=== PATIENT | female | born 1985 | race Caucasian/White ===

== ENCOUNTER 2023-05-29 08:56 | Outpatient (CLI) | payer OTHER ==
--- NOTE | 2023-05-29 14:00 | SLEEP CARE CONSULTATION ---
Information from patient questionnaire entered by Melecio Hoffman. I have reviewed and concur with the information entered by Melecio Hoffman. This document represents the service I personally performed and the decisions made by me, Tim Stockton MD, [facility]. History of Present Illness Service Date and Time: 05/29/2023 0856 Reason for Visit: New patient Chief Complaint: reports: Unrefreshed sleep, Snoring, Excessive daytime sleepiness, Observed pauses in breathing, Fatigue, Frequent awakenings at night Date of Onset: MORE THAN FIVE YRS Usual bedtime: 10PM Time it takes to fall asleep: 30-60MIN Snores at night: Yes Observed to quit breathing while asleep: No Sleeps alone due to snoring: No Number of times waking at night: 5-10 Reasons for waking at night: reports: Other (UNKNOWN) Toss, Turn, or Twitch while sleeping: Yes Recalls having dreams: Yes Usually gets out of bed at: 6-7AM Feels refreshed in the morning: No Morning headache: Yes Sleepy or fatigued during the day: Yes Ever fallen asleep while driving: No Takes day naps: No Prior sleep studies: No Additional HPI information: I have the pleasure of seeing Ms. Major today regarding the possibility of her having obstructive sleep apnea. As you know, she is a 37-year-old lady who complains of loud snore, observed apneas, frequent awakenings, unrefreshed sleep, persistent fatigue, and excessive daytime sleepiness for the past 5 years. The patient tells me that she normally goes to bed around 10 pm, and it takes her approximately 10 - 30 minutes to fall asleep. She has not been told that she snores loudly and irregularly at night. She has never been observed to stop breathing in her sleep. Her can still sleep in the same bed. She can recall waking up on the average of 5 - 10 times during the night. Most of the time she wakes up because of unknown reason. She has awakened occasionally because of her own snoring, choking, and having to gasp for air. There is a lot of tossing and turning in her sleep. No somniloquy (sleep talking) or somnambulism (sleep walking). Generally, she can recall having dreams. In the morning she usually gets up out of the bed around 6 - 7 a.m. not feeling refreshed nor rested. She regularly has a morning headache that lasts for a few hours. During the day she complains of feeling sleepy and fatigued. Her score on [place] Sleepiness Scale is 7 out of 24. She never has fallen asleep while driving nor has had any accident due to sleepiness. She usually does not take naps during the day. She reports having impaired concentration during the day. 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 Patient is and lives in [place]. Have you smoked in the past 12 months: No Alcohol use: Yes Alcohol amount and frequency: 1-2 GLASSES 3-4 X WEEK Caffeine use: Yes Caffeine amount and frequency: 2-3 CUPS EVERYMORNING COFFEE, 1 DIET PEPSI A DAY Family History Family history of sleep disordered breathing: Yes Family Hx Sleep Apnea: Mother: Snoring, Sleep apnea - Untreated, Father: Snoring, Sleep apnea - Treated Allergies and Home Medications Known drug allergies: Yes (AMOXICILLIN) Drug allergies reviewed: Yes Home medication list reviewed: Yes Review of Systems Cardiovascular: denies: high blood pressure, palpitations, chest pain, irregular heart rate or pulse, leg or foot swelling, have to sleep sitting up, other Respiratory: denies: shortness of breath, wheeze, sputum production, chronic cough, other Gastrointestinal: denies: heartburn, difficulty swallowing, nausea, vomitting, diarrhea, abdominal pain, other Urinary: denies: incontinence, frequency, urgency, impotence, other Neurological: reports: headaches Psychiatric: reports: anxiety, depression Ear/Nose/Throat: denies: nasal congestion, sinus problems, nose bleeds, dry mouth/throat, hoarseness, injury to nose, tonsillectomy, wisdom teeth removed, other Endocrine: reports: sluggishness Musculoskeletal: reports: joint pain Immunologic: reports: sneezing, allergies to food or environment Physical Exam Vital signs obtained and entered by: MELECIO Arredondo MA Blood Pressure: 98/68 (LEFT ARM) Cuff size: regular Heart Rate: 74 O2 Saturation: 99 Height: 5 ft 4 in Weight: 151 lb Body Mass Index: 25.9 BMI Classification: Overweight Neck circumference: 14 Mood/affect: Normal HEENT: No craniofacial malformation Nostrils: patent to airflow Turbinates: normal Septum: midline Mouth and throat: normal Soft palate: normal Hard palate: normal Uvula: normal Uvula visualization: 100% Mallampati Class I Tongue: normal in size Tonsils: 1+ Chin and jaw: normal size and position Neck: normal w/o lymphadenopathy or thyromegaly Heart: regular rate and rhythm Lungs: clear bilaterally Extremities: no edema or clubbing Neurologic: intact Impression and Plan IMPRESSION: 1. Obstructive Sleep Apnea-Hypopnea Syndrome, as evident by history of loud and irregular snoring, observed cessation of breath while asleep, frequent awakenings during the night, unrefreshed sleep, cognitive impairment, and daytime hypersomnolence. I recommend proceeding to polysomnography to confirm the diagnosis and to assess severity. If she has significant sleep disordered breathing, a manual CPAP titration study will also be performed to find the optimal treatment pressure. I informed the patient of what the sleep studies involve and after some discussion, she agreed to proceed. Plan: 1. Schedule polysomnography +/- manual CPAP titration study and return in 1 to 2 weeks after the study to discuss result and initiate therapy. 2. Avoid long distance driving or when feeling sleepy. 3. Avoid alcohol, sedatives, and muscle relaxants around bedtime. Follow up with Sleep Care in: 1-2 months Visit Type: In Office Time Spent with Patient (minutes): 15 Provider Statement: I spent 100% of the Face to Face Visit with the patient with greater than 50% spent counseling the patient and coordination of care.
[2023-05-29 14:08] VITALS: BP 98/68
== END 2023-05-29 08:57 | disposition home or self-care (01) ==
LOC: SC 08:56
PROVIDERS: ATTEND Internal Medicine Pulmonary Disease
DX: R06.83 Snoring (principal); R06.81 Apnea, not elsewhere classified; G47.8 Other sleep disorders; R41.89 Other symptoms and signs involving cognitive functions and awareness; G47.10 Hypersomnia, unspecified; E66.3 Overweight; Z68.25 Body mass index [BMI] 25.0-25.9, adult
CPT/HCPCS: 99202; 99212

== ENCOUNTER 2023-07-12 12:14 | Outpatient (CLI) | payer OTHER | END 2023-07-12 12:15 | disposition home or self-care (01) | LOC: SC 12:14 | PROVIDERS: ATTEND Internal Medicine Pulmonary Disease | DX: R09.02 Hypoxemia (principal) | CPT/HCPCS: 95806 ==

== ENCOUNTER 2023-07-24 13:50 | Outpatient (CLI) | payer OTHER ==
--- NOTE | 2023-07-24 14:14 | SLEEP CARE CONSULTATION ---
Information from patient questionnaire entered by Melecio Hoffman. I have reviewed and concur with the information entered by Melecio Hoffman. This document represents the service I personally performed and the decisions made by me, Tim Stockton MD, [facility]. History of Present Illness Service Date and Time: 07/24/2023 1350 Initial [place] Sleepiness Scale score: 7 (05/29/23) Current [place] Sleepiness Scale score: 10 (07/24/23) Additional HPI information: Ms. Major returned for follow up of the home sleep apnea test (HSAT) she had on . The test showed no significant sleep disordered breathing, with an AHI of 4.2/hr and noam SaO2 of 88%. During the study, the patient had 22 apneas (22 obstructive, 0 central, 0 mixed) and 10 hypopneas. The longest episode lasted 88.5 seconds. The few respiratory events occurred almost exclusively during supine sleep (supine AHI was 12.3 and non-supine, 1.56). Hypoxemia was minimal, with the lowest oxygen saturation of 88 % and 0.2 minutes with SaO2 under 90%. Baseline oxygen saturation was normal (Average oxygen saturation was 96%). The patient was informed of these findings. I explained to her that the test was negative for significant sleep-disordered breathing. The patient states that she sleeps mostly on her back and that she experiences frequent awakenings, unrefreshed sleep, and excessive daytime sleepiness. Sleep Study - Results Type of Sleep Study: Home sleep study (COMPLETED 07/12/23) Prior sleep studies: No Allergies and Home Medications Drug allergies reviewed: Yes Home medication list reviewed: Yes Allergy and home medication list: Allergies amoxicillin Allergy (Verified 07/21/23 11:43) Review of Systems Review of systems same as previous: Yes Physical Exam Vital signs obtained and entered by: MELECIO Arredondo MA Blood Pressure: 128/74 (LEFT ARM) Cuff size: regular Heart Rate: 78 O2 Saturation: 98 Height: 5 ft 4 in Weight: 157 lb 12.8 oz Body Mass Index: 27.1 BMI Classification: Overweight Impression and Plan IMPRESSION: 1. Obstructive Sleep Apnea-Hypopnea Syndrome, not documented by her recent home sleep apnea test (HSAT). Because she has several symptoms of sleep- related breathing disorder, I will order an in-laboratory polysomnography which is more reliable and accurate. PLAN: 1. Schedule an in-laboratory polysomnography. 2. Return for follow up after the sleep study. Follow up with Sleep Care in: 1-2 months Visit Type: In Office Time Spent with Patient (minutes): 15 Provider Statement: I spent 100% of the Face to Face Visit with the patient with greater than 50% spent counseling the patient and coordination of care.
[2023-07-24 14:21] VITALS: BP 128/74; O2SAT 98
== END 2023-07-24 13:51 | disposition home or self-care (01) ==
LOC: SC 13:50
PROVIDERS: ATTEND Internal Medicine Pulmonary Disease
DX: G47.33 Obstructive sleep apnea (adult) (pediatric) (principal); E66.3 Overweight; Z68.27 Body mass index [BMI] 27.0-27.9, adult
CPT/HCPCS: 99212